=== PATIENT | female | born 1970 | race Caucasian/White ===

== ENCOUNTER → 2020-02-10 15:02 | Outpatient (BNVA) | payer OTHER, SELFPAY | PROVIDERS: Visit Provider Physician Assistant | DX: Z01.89 Encounter for other specified special examinations (principal) | CPT/HCPCS: 99211 ==

== ENCOUNTER → 2020-02-24 08:38 | Outpatient (BNVA) | payer OTHER, SELFPAY | PROVIDERS: Visit Provider Surgery | DX: Z76.89 Persons encountering health services in other specified circumstances (principal) ==

== ENCOUNTER → 2020-03-08 08:22 | Outpatient (BNVA) | payer OTHER, SELFPAY | PROVIDERS: Visit Provider Surgery | DX: Z76.89 Persons encountering health services in other specified circumstances (principal) ==

== ENCOUNTER → 2020-04-13 08:13 | Outpatient (BNVA) | payer OTHER, SELFPAY | PROVIDERS: Visit Provider Dietitian, Registered ==

== ENCOUNTER → 2020-04-15 08:06 | Outpatient (BNVA) | payer OTHER, SELFPAY | PROVIDERS: Visit Provider Surgery ==

== ENCOUNTER → 2020-06-03 08:01 | Outpatient (BNVA) | payer OTHER, SELFPAY | PROVIDERS: Visit Provider Surgery ==

== ENCOUNTER → 2020-06-22 08:07 | Outpatient (BNVA) | payer OTHER, SELFPAY | PROVIDERS: Visit Provider Dietitian, Registered ==

== ENCOUNTER → 2020-07-05 13:59 | Outpatient (BNVA) | payer OTHER, SELFPAY | PROVIDERS: Visit Provider Dietitian, Registered | DX: E66.01 Morbid (severe) obesity due to excess calories (principal); Z68.42 Body mass index [BMI] 45.0-49.9, adult | CPT/HCPCS: 97802 ==

== ENCOUNTER → 2020-07-28 08:10 | Outpatient (BNVA) | payer OTHER, SELFPAY | PROVIDERS: Visit Provider Dietitian, Registered | DX: E66.01 Morbid (severe) obesity due to excess calories (principal); Z68.42 Body mass index [BMI] 45.0-49.9, adult | CPT/HCPCS: 97803 ==

== ENCOUNTER → 2020-08-29 07:50 | Outpatient (BNVA) | payer OTHER, SELFPAY | PROVIDERS: Visit Provider Surgery ==

== ENCOUNTER → 2020-08-30 08:14 | Outpatient (BNVA) | payer OTHER, SELFPAY | PROVIDERS: Visit Provider Dietitian, Registered ==

== ENCOUNTER 2020-09-06 08:32 | Outpatient (REF) | payer OTHER, SELFPAY ==
--- NOTE | ~2020-09-06 | US_ITS ---
EXAMINATION: US COMPLETE ABDOMEN WITH LIVER ELASTOGRAPHY CLINICAL INFORMATION: Obesity. Gastroesophageal reflux COMPARISON: None. TECHNIQUE: Real-time imaging of the abdominal viscera. Noninvasive ultrasound liver fibrosis assessment is performed using Jose Armando ElastPQ point quantification shear wave elastography (pSWE) with a C5-2 MHz transducer. Multiple elastography samples are obtained. FINDINGS: PANCREAS: Normal. ABDOMINAL AORTA: The proximal, middle, and distal aortic segments are normal in caliber. INFERIOR VENA CAVA: Visualized portions are normal. LIVER: Normal. The liver demonstrates normal size, contour and echogenicity. No focal lesion or intrahepatic biliary duct dilatation. The right lobe measures 16 cm in length. The left lobe measures 10 cm in length. Portal flow is normal/hepatopedal Shear wave liver elastography median stiffness is 1.4 m/s (reference: normal median stiffness is 1.3 m/s or less). IQR/median stiffness to assess sampling precision is 0.23 (reference: good quality data set is IQR/median stiffness of 0.15 or less). GALLBLADDER: There is a large 1.9 x 3.7 x 2.5 cm gallstone in the gallbladder. Gallbladder is normal in size. The gallbladder wall does not appear thickened. There is no pericholecystic fluid. COMMON BILE DUCT: Normal in caliber measuring 0.4 cm in diameter. RIGHT KIDNEY: There is a small 7 x 8 mm cyst exophytic to the lateral lower pole. No hydronephrosis. No renal calculi. The kidney measures 12.8 cm in maximum dimension. LEFT KIDNEY: Normal. No hydronephrosis. No renal calculi or focal parenchymal lesions. The kidney measures 11.7 cm in maximum dimension. SPLEEN: Normal. The spleen measures 10.8 cm in maximum dimension. FREE FLUID: None. US/US abdomen comp w elastography IMPRESSION: 1. Impression impression: Normal-appearing liver. Large gallstone in the gallbladder. Small right renal cyst. 2. Liver elastography: Slightly limited due to sampling error. In the absence of other known clinical signs, rules out compensated advanced chronic liver disease. REFERENCE: Society of Radiologists in Ultrasound Liver Stiffness Thresholds (2020): LIVER STIFFNESS THRESHOLDS: *Liver Stiffness equal or less than 1.3 m/s: High probability of being normal. *Liver Stiffness less than 1.7 m/s: In the absence of other known clinical signs, rules out compensated advanced chronic liver disease. *Liver Stiffness 1.7-2.1 m/s: Suggestive of compensated advanced chronic liver disease but need further test for confirmation. *Liver Stiffness over 2.1 m/s: Rules in compensated advanced chronic liver disease. *Liver Stiffness over 2.4 m/s: Suggestive of clinically significant portal hypertension. QUALITY OF DATA SET: *IQR/Median value equal or less than 0.15 implies a quality data set. *IQR/Median value over 0.15 implies a poor quality data set. SIGNIFICANT CHANGE FROM PRIOR EXAM: Significant change if liver stiffness measurement is 10% or greater from prior exam. OTHER CONSIDERATIONS: The stage of liver fibrosis may be overestimated in the setting of acute hepatitis, liver inflammation, elevated liver function tests, hepatic vascular congestion, obstructive cholestasis, non-fasting state, and infiltrative diseases such as amyloidosis and lymphoma. In some patients with NAFLD, the liver stiffness thresholds for compensated advanced chronic liver disease may be lower. In causes other than viral hepatitis and NAFLD, liver stiffness thresholds are not well established.
--- NOTE | ~2020-09-06 | FL_ITS ---
EXAMINATION: XR GI SERIES CLINICAL INFORMATION: Obesity. Gastroesophageal reflux disease. COMPARISON: None TECHNIQUE: Upper GI was performed using thin and thick barium and effervescent granules. FINDINGS: Esophageal motility is normal. No significant esophageal hernia is seen. There is mild gastroesophageal reflux. There is fold thickening of the stomach questionable for gastritis. No ulcer, mass or stricture is seen. The duodenum is normal appearing. FLUOROSCOPY TIME: 1.1 minutes DOSE AREA PRODUCT: 17 dumont per centimeter squared. Total dose 63 mgy. 25 saved fluoroscopic images. FL/FL upper GI series IMPRESSION: Mild gastroesophageal reflux. Prominent folds in the stomach questionable for gastritis.
--- NOTE | ~2020-09-06 | XR_ITS ---
EXAMINATION: XR CHEST CLINICAL INFORMATION: Obesity. Gastroesophageal reflux disease. COMPARISON: None TECHNIQUE: 2 views of the chest were obtained. FINDINGS: The cardiac and mediastinal contours are normal. The lungs are clear. There is no pleural effusion or pneumothorax. There are mild degenerative changes of the spine. XR/XR chest 2V IMPRESSION: No evidence for acute disease in the chest.
== END 2020-09-06 08:33 | disposition home or self-care (01) ==
LOC: HO.US 08:32
PROVIDERS: Visit Provider Surgery
DX: Z01.818 Encounter for other preprocedural examination (principal); E66.01 Morbid (severe) obesity due to excess calories; K21.9 Gastro-esophageal reflux disease without esophagitis; F32.9 Major depressive disorder, single episode, unspecified; F90.9 Attention-deficit hyperactivity disorder, unspecified type
CPT/HCPCS: 71046; 74240; 76705; 76981

== ENCOUNTER → 2020-10-03 07:11 | Outpatient (BNVA) | payer OTHER, SELFPAY | PROVIDERS: Visit Provider Surgery ==

== ENCOUNTER 2020-10-05 09:28 | Outpatient (REF) | payer OTHER, SELFPAY ==
--- NOTE | 2020-10-05 09:44 | ECG_ITS ---
Test Reason : E66.01 Blood Pressure : / mmHG Vent. Rate : 077 BPM Atrial Rate : 077 BPM P-R Int : 140 ms QRS Dur : 076 ms QT Int : 388 ms P-R-T Axes : 052 029 030 degrees QTc Int : 439 ms Normal sinus rhythm Normal ECG No previous ECGs available Referred By: Lionel Campa Electronically Signed By:Jose Polk
[2020-10-05 10:20] LABS: MANUAL DIFF FLAG NO
[2020-10-05 10:23] LABS: Basophils Absolute Auto 0.1 X10*3/uL (0.0-0.2); Basophils Percent Auto 0.8 % (0-2); Eosinophils Absolute Auto 0.2 X10*3/uL (0.0-0.4); Hemoglobin 12.8 g/dl (12.0-16.0); Imm Gran Abs Auto 0.02 X10*3/uL (0.00-0.03); Imm Gran Pct Auto 0.3 % (0.0-0.4); Lymphocytes Absolute Auto 2.1 X10*3/uL (1.2-4.9); Mean Corpuscular HGB Conc 31.2 g/dl (31.0-35.0); Mean Corpuscular Hemoglobin 26.3 pg (27.0-33.0); Mean Corpuscular Volume 84.2 fL (80-98); Mean Platelet Volume 11.2 fL (9.4-12.3); Monocytes Absolute Auto 0.4 X10*3/uL (0.1-1.2); Neutrophils Absolute Auto 4.6 X10*3/uL (2.0-8.3); Neutrophils Percent Auto 61.9 % (45-73); Platelet Count 346 X10*3/uL (160-400); Red Blood Count 4.87 X10*6/uL (4.20-5.50); Red Cell Distribution Width 15.2 % (11.0-16.0); White Blood Count 7.4 X10*3/uL (4.8-10.8)
[2020-10-05 10:31] LABS: Estimated Average Glucose 114 mg/dL; Hemoglobin A1c % 5.6 %
[2020-10-05 11:40] LABS: Alanine Aminotransferase 72 U/L (0-31); Albumin Level 4.1 g/dL (3.5-5.0); Alkaline Phosphatase 123 U/L (39-117); Anion Gap 13 (12-20); Aspartate Amino Transferase 27 U/L (5-31); Bilirubin Total 0.3 mg/dL (0.0-1.0); Blood Urea Nitrogen 22 mg/dL (9-16); C Reactive Protein 1.95 mg/dL (< or = 0.50); Calcium 9.4 mg/dL (8.4-10.2); Carbon Dioxide 29 mmol/L (22-29); Chloride 103 mmol/L (96-108); Cholesterol 162 mg/dL; Estimated Glomerular Filt Rate > 60; Glucose Random 106 mg/dL (60-115); HDL Cholesterol 43 mg/dL; LDL Cholesterol Calculated 84 mg/dl; Potassium 4.1 mmol/L (3.3-5.1); Sodium 141 mmol/L (135-145); Total Protein 7.3 g/dL (6.5-8.0); Triglycerides 176 mg/dL
[2020-10-05 11:46] LABS: Ferritin 26 ng/mL (10-250); TSH reflex Free T4 0.91 uIU/mL (0.32-4.0); Vitamin D 25-OH Total 43.4 ng/mL (>30)
[2020-10-05 12:44] LABS: Folate 16.5 ng/mL (> or = 4.0); Vitamin B12 1120 pg/mL (200-900)
[2020-10-06 14:31] LABS: H Pylori Breath Test NOT DETECTED (NOT DETECTED)
[2020-10-06 14:56] LABS: Calcium (PTHI) 9.4 mg/dL (8.6-10.4); PTHI 25 pg/mL (14-64)
[2020-10-06 23:26] LABS: Insulin Level Total 12.4 uIU/mL
[2020-10-08 00:46] LABS: Zinc 70 mcg/dL (60-130)
[2020-10-10 03:31] LABS: Vitamin A 72 mcg/dL (38-98)
[2020-10-10 11:42] LABS: Vitamin B1 13 nmol/L (8-30)
== END 2020-10-05 09:29 | disposition home or self-care (01) ==
LOC: HO.LAB 09:28
PROVIDERS: Visit Provider Surgery
DX: F32.9 Major depressive disorder, single episode, unspecified (principal); F90.9 Attention-deficit hyperactivity disorder, unspecified type; K21.9 Gastro-esophageal reflux disease without esophagitis; E66.01 Morbid (severe) obesity due to excess calories
CPT/HCPCS: 36415; 80053; 80061; 82306; 82607; 82728; 82746; 83013; 83036; 83525; 83970; 84425; 84443; 84590; 84630; 85025; 86140; 93005

== ENCOUNTER 2020-10-05 10:18 | Emergency (ER) | payer OTHER, SELFPAY ==
[2020-10-05 10:20] VITALS: BP 128/82; PULSE 83; RESP 12; TEMP 36.6; O2SAT 97; BMI 45.1
--- NOTE | 2020-10-05 10:31 | ED.GENADULT ---
HPI - General Adult General Chief complaint: General Medical Stated complaint: ?infected finger Time Seen by Provider: 10/05/20 10:31 Source: patient Mode of arrival: ambulatory Limitations: no limitations History of Present Illness HPI narrative: 50 y/o female presenting with a painful and red index finger on her left hand. She is concerned there is an infection. She thinks her fingernail got infected after giving herself a manicure. She tried using different ointments and cleansers. She developed a blister to the area that popped and then redness started to spread slightly. She reports ongoing discomfort and pressure feeling in her fingertip. She is not diabetic. No redness down her finger or arm. No fevers. complaint: finger pain & swelling Onset (ago): day(s) (4) Location: left and upper extremity Radiation: non-radiation Severity: moderate Quality: aching Pain Consistency: constant Relieving factors: none Exacerbating factors: other (palpation) Associated symptoms: denies other symptoms Treatments prior to arrival: none Related Data Home Medications Medication Instructions Recorded Confirmed omeprazole magnesium 20 mg 20 mg PO DAILY 03/08/20 03/08/20 tablet,delayed release Previous Rx's Medication Instructions Recorded bupropion HCl 150 mg tablet,12 hr 150 mg PO DAILY #1 tab 03/08/20 sustained-release fluoxetine 40 mg capsule 40 mg PO DAILY #1 cap 03/08/20 lisdexamfetamine 20 mg capsule 20 mg PO DAILY #1 cap 03/08/20 Allergies Allergy/AdvReac Type Severity Reaction Status Date / Time No Known Allergies Allergy Verified 03/08/20 14:03 Review of Systems Review of Systems: Constitutional: No Fever, No Chills Gastrointestinal: No Nausea, No Vomiting Musculoskeletal: + joint pain, No Myalgias Skin: + Skin Lesions, No rash Neuro: No Weakness, No Numbness Heme/Lymph: No Bruising, No Lymphadenopathy PMFSH Past Medical History Attestation statement: The following information was validated with the patient. Medical History ADHD Depression DJD (degenerative joint disease) GERD (gastroesophageal reflux disease) Surgical History (Updated 03/08/20 @ 14:07 by Lionel Campa MD) History of hip replacement Morbid obesity Family History Family History Mother No problems noted. Father Congestive heart failure Son Autism Social History Social History Alcohol intake: current Alcohol intake frequency: holidays/special occasions only Advance Directives: Yes Advance Directives Information Provided: No Advance Directives on File: No Patient : No Physical Exam Vital Signs: Vital Signs: Last Vital Signs Temp 97.9 F 10/05/20 10:20 Pulse 83 10/05/20 10:20 Resp 12 10/05/20 10:20 BP 128/82 10/05/20 10:20 Pulse Ox 97 10/05/20 10:20 Body Mass Index 45.1 Appearance: Alert. Oriented X3. No acute distress. HEENT: normal inspection CVS: Normal heart rate and rhythm. Pulses normal. Respiratory: No respiratory distress. Skin: Skin warm and dry. Normal skin color. Normal skin turgor. No rashes. Extremities: left index finger with erythema, warmth and tenderness to the distal tip lateral to to the fingernail. cap refill <3 sec. able to bend at DIP and PIP joints. Neuro: Oriented X 3. No motor deficit. No sensory deficit. Course Course Course Narrative: 50 y/o female presenting with left index fingertip pain and redness x4 days. Exam is consistent with a paronychia. Will treat with PO abx. Tolerated I&D well w/ small amount of pus and blood expressed. Stable for d/c. Procedures Abscess I/D Site: hand Side (if applicable): left Technique: incised with blade Sent for culture/gram staining?: No Irrigation: Yes Packing used?: none Complications: pain Critical Care Time Critical Care Time Critical Care Time: No Discharge Plan Discharge Clinical Impression: Paronychia Patient Disposition: Home, Self-Care Instructions: Paronychia (ED) Additional Instructions: Take the prescribed antibiotics as directed. Recommend warm soaks in warm soapy water 2-3 times per day. Use topical bacitracin 2 times per day. Keep clean and covered. If you have worsening signs of infection such as worsening pain, swelling, redness or drainage of pus come back to the ER for further evaluation. Prescriptions: No Action fluoxetine [Prozac] 40 mg capsule 40 mg PO DAILY Qty: 1 RF: 0 bupropion HCl [Wellbutrin SR] 150 mg tablet sustained-release 12 hr 150 mg PO DAILY Qty: 1 RF: 0 Vyvanse 20 mg capsule 20 mg PO DAILY Qty: 1 RF: 0 omeprazole magnesium [Prilosec OTC] 20 mg tablet,delayed release (DR/EC) 20 mg PO DAILY RF: 0
== END 2020-10-05 11:14 | disposition home or self-care (01) ==
PROVIDERS: Emergency Provider Emergency Medicine
DX: L02.512 Cutaneous abscess of left hand (principal); L03.012 Cellulitis of left finger; M79.642 Pain in left hand; Z79.899 Other long term (current) drug therapy
CPT/HCPCS: 26010; 99211; 99283; 99284

== ENCOUNTER → 2020-10-26 08:15 | Outpatient (BNVA) | payer OTHER, SELFPAY | PROVIDERS: Visit Provider Dietitian, Registered ==

== ENCOUNTER → 2020-11-17 10:36 | Outpatient (BNVA) | payer OTHER, SELFPAY | PROVIDERS: Visit Provider Dietitian, Registered ==

== ENCOUNTER → 2020-11-21 07:10 | Outpatient (BNVA) | payer OTHER, SELFPAY | PROVIDERS: Visit Provider Surgery ==

== ENCOUNTER → 2020-11-30 08:11 | Outpatient (BNVA) | payer OTHER, SELFPAY | PROVIDERS: Visit Provider Dietitian, Registered | DX: E66.01 Morbid (severe) obesity due to excess calories (principal) | CPT/HCPCS: 97803 ==

== ENCOUNTER → 2020-12-01 11:58 | Outpatient (BNVA) | payer OTHER, SELFPAY | PROVIDERS: Visit Provider Physician Assistant ==

== ENCOUNTER → 2020-12-12 08:31 | Outpatient (BNVA) | payer OTHER, SELFPAY | PROVIDERS: Visit Provider Surgery ==

== ENCOUNTER → 2020-12-16 13:17 | Outpatient (BNVA) | payer OTHER, SELFPAY | PROVIDERS: Visit Provider Dietitian, Registered ==

== ENCOUNTER 2020-12-27 11:10 | Inpatient (IN) | payer OTHER, SELFPAY ==
[2020-12-19 08:49] VITALS: BMI 46.1
[2020-12-20 10:00] LABS: MANUAL DIFF FLAG NO
[2020-12-20 10:12] LABS: Basophils Absolute Auto 0.1 X10*3/uL (0.0-0.2); Basophils Percent Auto 0.7 % (0-2); Eosinophils Absolute Auto 0.2 X10*3/uL (0.0-0.4); Eosinophils Percent Auto 1.8 % (0-4); Hematocrit 42.1 % (37-47); Hemoglobin 13.2 g/dl (12.0-16.0); Imm Gran Abs Auto 0.05 X10*3/uL (0.00-0.03); Imm Gran Pct Auto 0.6 % (0.0-0.4); Lymphocytes Absolute Auto 2.4 X10*3/uL (1.2-4.9); Lymphocytes Percent Auto 28.7 % (20-40); Mean Corpuscular HGB Conc 31.4 g/dl (31.0-35.0); Mean Corpuscular Hemoglobin 26.7 pg (27.0-33.0); Mean Corpuscular Volume 85.2 fL (80-98); Mean Platelet Volume 11.6 fL (9.4-12.3); Monocytes Absolute Auto 0.5 X10*3/uL (0.1-1.2); Monocytes Percent Auto 6.4 % (2-11); Neutrophils Absolute Auto 5.2 X10*3/uL (2.0-8.3); Neutrophils Percent Auto 61.8 % (45-73); Platelet Count 382 X10*3/uL (160-400); Red Blood Count 4.94 X10*6/uL (4.20-5.50); Red Cell Distribution Width 15.1 % (11.0-16.0); White Blood Count 8.4 X10*3/uL (4.8-10.8)
[2020-12-20 10:16] LABS: INTERNATIONAL NORM RATIO 1.1 (0.9-1.1); Prothrombin Time 12.8 SEC (9.9-13.0)
[2020-12-20 10:19] LABS: Partial Thromboplastin Time 42.2 SEC (24.1-38.0)
[2020-12-20 10:36] LABS: Estimated Average Glucose 105 mg/dL; Hemoglobin A1c % 5.3 %
[2020-12-20 10:43] LABS: Alanine Aminotransferase 30 U/L (0-31); Albumin Level 4.1 g/dL (3.5-5.0); Alkaline Phosphatase 88 U/L (39-117); Anion Gap 15 (12-20); Aspartate Amino Transferase 22 U/L (5-31); Bilirubin Total 0.4 mg/dL (0.0-1.0); Blood Urea Nitrogen 20 mg/dL (9-16); C Reactive Protein 2.53 mg/dL (< or = 0.50); Carbon Dioxide 29 mmol/L (22-29); Chloride 101 mmol/L (96-108); Cholesterol 155 mg/dL; Creatinine Clr Calc Pharmacy 114.8; Estimated Glomerular Filt Rate > 60; Glucose Random 107 mg/dL (60-115); HDL Cholesterol 42 mg/dL; LDL Cholesterol Calculated 86 mg/dl; Sodium 140 mmol/L (135-145); Total Protein 7.3 g/dL (6.5-8.0); Triglycerides 139 mg/dL
[2020-12-20 11:06] LABS: TSH reflex Free T4 1.42 uIU/mL (0.32-4.0)
[2020-12-22 09:08] LABS: Insulin Level Total 6.5 uIU/mL
[2020-12-23 12:47] LABS: Zinc 71 mcg/dL (60-130)
--- NOTE | 2020-12-25 18:26 | MHC.SHP ---
Pre-Procedural Eval Section A Date of Service: 12/25/20 The patient is an INPATIENT: Yes The History & Physical has been completed within 30 days and I have reviewed it.: Yes Section B Chief Complaint: Morbid Severe Obesity Relevant Family History (Specify if Yes): No Relevant Social History: None Present Medications: None Medical History: No relevant PMH History of Previous Operations: No relevant previous surgery Allergies: Allergies Allergy/AdvReac Type Severity Reaction Status Date / Time No Known Allergies Allergy Verified 12/12/20 14:22 Review of Systems Sugical H&P ROS: Negative: Constitution, Cardiovascular, Respiratory, Neurological, Psychiatric, Hem-Onc, Allergic/Immunologic, Gastrointestinal, Genitourinary, Musculoskeletal, Integumentary, Endocrine and Eyes/Ears/Nose/Throat Exam Surgical H&P Exam: Normal: HEENT, Normal: Heart, Normal: Lungs, Normal: Extremities, Normal: Abdomen, Normal: Skin and Normal: Neurological Plan Diagnosis/Plan: Unchanged I have reviewed the history and physical and performed a pertinent physical examination on my patient. No changes have occurred unless specified.
--- NOTE | 2020-12-26 10:04 | HO.ANESPROP2 ---
Documented by User: Paradise Diez NP 12/26/20 10:04 HPI - Anesthesia Eval Consult details Narrative: 50yo F for Gastrectomy Sleeve, EGD, Poss Diaphragmatic Hernia, Poss Ventral Hernia, Poss open PMFSH Active Problems Active Problems: All Active Problems (Updated 12/19/20 @ 08:49 by Carrie Acuna RN) Morbid obesity (Acute) GERD (gastroesophageal reflux disease) (Acute) DJD (degenerative joint disease) (Acute) Depression (Acute) ADHD (Acute) Past Medical History Medical History ADHD COVID-19 vaccine series completed Depression DJD (degenerative joint disease) GERD (gastroesophageal reflux disease) Family History Family History Mother No problems noted. Father Congestive heart failure Son Autism Surgical History Surgical History History of hip replacement Social History Social History Household Members: Family Housing: House Are you a primary medicare interviewer to a significant other at home: No Do you presently have visiting nurse or other home services: No Patient Tobacco Use Status: Former Tobacco user Quit Date: age 30 Tobacco use type: Cigarette Use of substances other than those prescribed or required for medical reasons: Yes Substance Use Type: Marijuana Substance Use Type Other:: advised to hold pre-op Substance Use Frequency: Occasionally Have you been hit, kicked, punched, or otherwise hurt by someone within the past year? If so, by whom?: No Are you DNR?: No Advance Directives: No (states no official HCP-would be ) Advance Directives Information Provided: Yes (as above-HCP informational brochure mailed w/pre-op info) Advance Directives on File: No Recently lost weight without trying: No Eating poorly because of decreased appetite: No Nutrition Risks: No Nutritional Risk Patient : No (post menopausal) Poor oral hygiene: No Meds Allergies Allergy/AdvReac Type Severity Reaction Status Date / Time No Known Allergies Allergy Verified 12/27/20 11:13 Home Medications Medication Instructions Recorded Confirmed Last Taken Type dextroamphetamine-amphetamine 30 30 mg PO DAILY 0912/19/20 12/27/20 06:00 History mg tablet (Adderall) Exam Exam Date and Time: December 26, 2020 1004 Height,Weight and Vital Signs: Height 5 ft 6 in Weight 129.727 kg Pertinent Lab Results Pertinent Lab Results: Laboratory Tests 12/20/20 12/20/20 12/20/20 09:20 09:20 09:20 WBC 8.4 RBC 4.94 Hgb 13.2 Hct 42.1 MCV 85.2 MCH 26.7 L MCHC 31.4 RDW 15.1 Plt Count 382 MPV 11.6 Immature Gran % (Auto) 0.6 H Neut % (Auto) 61.8 Lymph % (Auto) 28.7 [place] % (Auto) 6.4 Eos % (Auto) 1.8 Baso % (Auto) 0.7 Lymph # (Auto) 2.4 [place] # (Auto) 0.5 Eos # (Auto) 0.2 Baso # (Auto) 0.1 Abs Immat Gran (auto) 0.05 H Absolute Neuts (auto) 5.2 Absolute Nucleated RBC 0.000 Nucleated RBC % (auto) 0.0 PT 12.8 INR 1.1 APTT 42.2 H Sodium 140 Potassium 5.0 D Chloride 101 Carbon Dioxide 29 Anion Gap 15 BUN 20 H Creatinine 0.80 Estim Creat Clear Calc 114.8 Estimated GFR > 60 Random Glucose 107 Estimat Average Glucose Hemoglobin A1c % Total Insulin Calcium 10.0 D Total Bilirubin 0.4 AST 22 ALT 30 Alkaline Phosphatase 88 D C-Reactive Protein 2.53 H Total Protein 7.3 Albumin 4.1 Triglycerides 139 Cholesterol 155 LDL Cholesterol, Calc 86 HDL Cholesterol 42 TSH 1.42 Zinc Blood Type Antibody Screen 12/20/20 12/20/20 12/20/20 09:20 09:20 09:20 WBC RBC Hgb Hct MCV MCH MCHC RDW Plt Count MPV Immature Gran % (Auto) Neut % (Auto) Lymph % (Auto) [place] % (Auto) Eos % (Auto) Baso % (Auto) Lymph # (Auto) [place] # (Auto) Eos # (Auto) Baso # (Auto) Abs Immat Gran (auto) Absolute Neuts (auto) Absolute Nucleated RBC Nucleated RBC % (auto) PT INR APTT Sodium Potassium Chloride Carbon Dioxide Anion Gap BUN Creatinine Estim Creat Clear Calc Estimated GFR Random Glucose Estimat Average Glucose 105 Hemoglobin A1c % 5.3 Total Insulin 6.5 Calcium Total Bilirubin AST ALT Alkaline Phosphatase C-Reactive Protein Total Protein Albumin Triglycerides Cholesterol LDL Cholesterol, Calc HDL Cholesterol TSH Zinc 71 Blood Type Antibody Screen 12/20/20 09:20 WBC RBC Hgb Hct MCV MCH MCHC RDW Plt Count MPV Immature Gran % (Auto) Neut % (Auto) Lymph % (Auto) [place] % (Auto) Eos % (Auto) Baso % (Auto) Lymph # (Auto) [place] # (Auto) Eos # (Auto) Baso # (Auto) Abs Immat Gran (auto) Absolute Neuts (auto) Absolute Nucleated RBC Nucleated RBC % (auto) PT INR APTT Sodium Potassium Chloride Carbon Dioxide Anion Gap BUN Creatinine Estim Creat Clear Calc Estimated GFR Random Glucose Estimat Average Glucose Hemoglobin A1c % Total Insulin Calcium Total Bilirubin AST ALT Alkaline Phosphatase C-Reactive Protein Total Protein Albumin Triglycerides Cholesterol LDL Cholesterol, Calc HDL Cholesterol TSH Zinc Blood Type A Positive Antibody Screen NEGATIVE Narrative Narrative: EKG 09/2020 Vent. Rate : 077 BPM ? ? Atrial Rate : 077 BPM ?? P-R Int : 140 ms? QRS Dur : 076 ms ? ? QT Int : 388 ms ? ? ? P-R-T Axes : 052 029 030 degrees ?? QTc Int : 439 ms ? Normal sinus rhythm Normal ECG No previous ECGs available Assessment and Plan Assessment Anesthesia Assessment: Chart Reviewed Documented by User: Verona Pretty MD 12/27/20 12:03 [facility] Past Medical History Medical History ADHD COVID-19 vaccine series completed Depression DJD (degenerative joint disease) GERD (gastroesophageal reflux disease) Family History Family History Mother No problems noted. Father Congestive heart failure Son Autism Family history of problems with anesthesia: No Surgical History Surgical History History of hip replacement History of Problems with Anesthesia: No Social History Social History Household Members: Family Housing: House Are you a primary medicare interviewer to a significant other at home: No Do you presently have visiting nurse or other home services: No Patient Tobacco Use Status: Former Tobacco user Quit Date: age 30 Tobacco use type: Cigarette Use of substances other than those prescribed or required for medical reasons: Yes Substance Use Type: Marijuana Substance Use Type Other:: advised to hold pre-op Substance Use Frequency: Occasionally Have you been hit, kicked, punched, or otherwise hurt by someone within the past year? If so, by whom?: No Are you DNR?: No Advance Directives: No (states no official HCP-would be ) Advance Directives Information Provided: Yes (as above-HCP informational brochure mailed w/pre-op info) Advance Directives on File: No Recently lost weight without trying: No Eating poorly because of decreased appetite: No Nutrition Risks: No Nutritional Risk Patient : No (post menopausal) Poor oral hygiene: No Meds Allergies Allergy/AdvReac Type Severity Reaction Status Date / Time No Known Allergies Allergy Verified 12/27/20 11:13 Home Medications Medication Instructions Recorded Confirmed Last Taken Type dextroamphetamine-amphetamine 30 30 mg PO DAILY 12/12/20 12/19/20 12/27/20 06:00 History mg tablet (Adderall) Exam Airway Mallampati Class: II TM Dist: >3cm Neck ROM: Full Assessment and Plan Assessment Anesthesia Assessment: Anesthesia Plan Discussed Final Anesthetic Review Family History of Problems with Anesthesia: No History of Problems with Anesthesia: No NPO: Yes ASA Class: III Final Preanesthetic Review: No Changes in Pt Med Stat, Meds/Allgs Chart Reviewed, Consent Obtained/Reviewed and Anes Risks/Benef Reviewed Patient Risk: Intermediate Procedure Risk: Intermediate Assessment/Block/Sedation in SS: Assess/Block/Sedation-SS Anesthetic Plan Anesthetic Plan: GA Disposition: Standard PACU
[2020-12-27] VITALS (13 sets, daily range): BP systolic 146–185; BP diastolic 85–107; PULSE 83–110; RESP 16–22; TEMP 36–36.7; O2SAT 93–100
--- NOTE | 2020-12-27 11:44 | PC.NURSE ---
In preop, patient stated that she drank small sips of water between 5am-10am, totaling about 8oz worth. Anesthesia Dr. Pretty and Dr. Espinal aware. Okay to proceed per both doctors. No new orders at this time.
[2020-12-27] MEDS: Lactated Ringers 1,000 ML 100 ML IVCONT (12:07)
[2020-12-27] MEDS: Lactated Ringers 1,000 ML 999 ML IV (12:07)
[2020-12-27 12:15] LABS: COVID-19 Test Negative (Negative); IDNOW Serial# 9DD0AD1C
--- NOTE | 2020-12-27 13:00 | PM.PNGS ---
Subjective Subjective Date of Service: 12/28/20 Interval history: Patient has mild incisional pain, but was able to ambulate and use the incentive spirometer. She is tolerating phase 1 bariatric diet Physical Exam Vital Signs: Vital Signs: Last Vital Signs Temp 97.9 F 12/27/20 11:38 Pulse 110 H 12/27/20 11:38 Resp 16 12/27/20 11:38 BP 146/87 H 12/27/20 11:38 Pulse Ox 97 12/27/20 11:38 Body Mass Index 46.1 GI: Inspection: Yes normal to inspection and Yes incision (dry, clean and intact) Extrem: Right lower extremity: normal to inspection (no calf tenderness) Left lower extremity: normal to inspection (no calf tenderness) Procedures Date of Service Date of Service: 12/28/20 Progress Note: A&P Assessment and plan (1) Morbid obesity: Status: Acute Assessment and Plan: s/p laparoscopic sleeve gastrectomy, lysis of adhesions repair of diaphragmatic hernia, and gastropexy Doing well Check am labs. If OK, will discharge home? (2) GERD (gastroesophageal reflux disease): Status: Acute (3) DJD (degenerative joint disease): Status: Acute (4) Depression: Status: Acute (5) ADHD: Status: Acute (6) Cholelithiasis: Status: Acute (7) S/P laparoscopic sleeve gastrectomy: Status: Acute (8) Status post repair of paraesophageal diaphragmatic hernia: Status: Acute Fall Risk Details Current Medications: Current Medications Hydromorphone HCl (Hydromorphone Hcl 0.5 Mg/0.5 Ml Syringe) 0.5 mg IVPUSH Q5M PRN; Protocol PRN Reason: Pain, Severe (Pain Scale 7-10) Lactated Ringer's (Lr) 1,000 mls @ 100 mls/hr IVCONT .Q10H DELMAR Last Admin: 12/27/20 12:07 Dose: 100 mls/hr Documented by: Promethazine HCl 12.5 mg/ (Sodium Chloride) 50.5 mls @ 202 mls/hr IV ONCE PRN PRN Reason: Nausea and Vomiting Ondansetron HCl (Ondansetron Hcl 4 Mg/2 Ml Vial) 4 mg IVPUSH ONCE PRN PRN Reason: Nausea and Vomiting Time Spent With Patient Time: Total time spent is greater than 50% in coordination of care (as documented) at patient's floor/unit and/or counseling patient: Time with patient: less than 15 minutes Quality Stroke Does the patient have a stroke diagnosis?: No VTE Prior VTE?: No VTE Risk Level:: Surgical - moderate VTE Device Contraindication: N/A - Device Ordered VTE Drug Contraindication: Treatment Not Indicated
--- NOTE | 2020-12-27 13:02 | P.BOP_ITS ---
Brief Operative Note Date of Service: 12/27/20 Pre-op diagnosis: Morbid obesity and comorbidities (see below) Post-op diagnosis: same Procedure: INITIAL PATIENT BMI ON PRESENTATION AT OUR OFFICE: 49.2 kg/m2 LAST BMI BEFORE SURGERY: 44.5 kg/m2 COMORBIDITIES: Depression, ADHD, GERD, Cholelithiasis The patient participated in an intensive weekly lifestyle ?intervention and exercise program during which the patient ?has lost between the initial office visit and the last preoperative visit 41.4lbs, or 12.73% of initial actual body weight. The patient met the BMI-criteria for bariatric surgery based on the BMI on initial presentation. The patient should not be penalized for achieving such weight loss because ?it is not sustainable long-term without surgical intervention and it was achieved in preparation for bariatric surgery ?under my direction and based on my published research ([email or web address] and? [email or web address]/[email or web address])22930-[email or web address]/pdf ) ?that a 10% preoperative weight loss improves long-term weight loss after surgery and reduces perioperative complications.? Insurance carriers such as [facility] have endorsed my recommendations ?and have included in their policies criteria to include a 10% preoperative weight loss requirement. PROCEDURE: Esophago-gastroscopy, laparoscopic repair of incarcerated diaphragmatic hernia, laparoscopic lysis of adhesions, laparoscopic sleeve gastrectomy and laparoscopic gastropexy INDICATIONS: This is a 50 year-old female who was electively scheduled for laparoscopic, possibly open sleeve gastrectomy. The risks and complications of the procedure were discussed with the patient in advance, particularly the possibility of ; pulmonary embolism; staple line leak; bleeding; GERD; cardiac, pulmonary, or renal complications; as well as long-term problems such as insufficient weight loss, vitamin deficiency, strictures, or ulcers. The patient understood all the risks, and was in agreement to proceed with surgery. DESCRIPTION OF PROCEDURE: After informed consent was obtained from the patient, the patient was given preoperative antibiotics, and was transferred to the operating room. After successful induction of general anesthesia, pneumatic compressive devices were placed on both lower extremities. An upper endoscopy was performed next. The oropharynx and esophagus appeared to be within normal limits. There was a diaphragmatic hernia present of moderate size that was noit reported at the preoperative upper GI. The stomach was entered. Then after all fluid and air were suctioned and the stomach was fully decompressed, the scope was withdrawn and secured in the mid esophagus. The patient was then prepped and draped in the usual sterile manner, and abdominal access was established at the right upper quadrant with the Martinez technique. A 12 mm blunt port was inserted, and the abdomen was insufflated with CO2 to a pressure of 15 mmHg. Under direct visualization, additional ports were placed, specifically two 5 mm Versi-step ports to the left upper quadrant, and a 5 mm Versi-Step port to the right upper quadrant. 1% lidocaine plain was used to infiltrate all port sites as well as all fascia defects. Following that, the patient was placed in a steep reverse Trendelenburg position. An additional 5 mm port was placed to the right flank for the Mediflex retractor that was used to retract the left lobe of the liver. The gastro-esophageal fat pad was opened with the ultrasonic device (Thunderbeat, Olympus) and the anterior esophagus and hiatus were exposed. The angle of His was opened with the ultrasonic device the fundus of the stomach from any diaphragmatic and splenic attachments. I then opened the gastrocolic ligament between the transverse colon and the grea ter curvature of the stomach with the ultrasonic device to enter the lesser sac and facilitate the ligation of the short gastric vessels. I started at a mid- point along the greater curvature and using the Thunderbeat, all short gastric vessels were divided all the way to the angle of His until the left jey was completely dissected at its entirety. I then divided the gastro-colic ligament distally to a distance of about 3-4 cm proximal to the esophagus. There was an obvious significant-sized hiatal hernia. I continued dissecting along the hiatus toward the left jey and the angle of His. I fully mobilized the fat pad that was incarcerated in the hernia. I then continued by dissecting even further into the posterior retro-esophageal space all the way to the angle of His. I continued to mobilize the esophagus into the mediastinum circumferentially. Both vagal nerves were seen and preserved. At that point, I was able to have at least 3 to 5 cm of esophagus into the abdomen.? After I comp letely mobilized the esophagus from both the left and right jey and I had a good mobilization of the esophagus circumferentially, I closed the hernia defect with three interrupted #0 Surgidac sutures using the Endo Stitch device, two of which were placed posterior and one anterior to the esophagus. ? The stomach was then divided transversely with one Endo AMAYA-45 purple, one AMAYA- 45 orange and four AMAYA-60 articulating orange loads using the AEON stapler and loads. Every effort was made that the gastric sleeve had a tubular shape and an even caliber throughout. Once the sleeve resection was completed, the staple line of the gastric sleeve was reinforced with Hemoclips. The resected stomach was retrieved without difficulty from the Martinez port. A gastropexy was then performed in order to prevent postoperative GERD and partial gastric volvulus. Several interrupted 2.0 Surgidac sutures were placed between the sleeve's staple line and the previously divided greater omentum and gastro-colic ligament using the Endo-Stitch device. ?An upper endoscopy was performed. There was no narrowing at the GE junction. The scope was easily advanced all the way to the pylorus which was clearly visua lized. There was no narrowing anywhere and the sleeve's caliber was even throughout. The sleeve's staple line was inspected and there was no evidence of ischemia, bleeding or dehiscence. At that point the gastroscope was withdrawn from the patient?s mouth while we were decompressing the bowel and the stomach from any remaining air. I looked into the lesser sac to see how the sleeve was situating and it was situating well. There was no bleeding from the staple line, spleen, or short gastric vessels. The Mediflex retractor was removed, and the undersurface of the liver was inspected and there was no bleeding. The patient was placed in supine position. I closed the fascial defect of the 12 mm port site with a figure of eight #1 Polysorb suture. Then 100 cc 0.25 % Marcaine plain with 10 mg of Dexamethasone were used to infiltrate the fascial closure as well as all skin incisions. At this point, the abdomen was deflated, all ports were removed under direct vision, and no bleeding was noted from any of the port sites. The skin incisions were irrigated with saline and were closed with 4-0 absorbable monofilament sutures. Steri-Strips and OpSites were used to cover all incisions. The patient was extubated and was transferred in stable condition to the recovery room for further care. I was present and performed all bearden parts of the procedure. Ms. Mccullough was the assistant designer and Mr. Zuniga the second physician assistant psychiatry. There were no residents to assist with this case. Cory Campa MD, PhD, FACS Surgeon: Lionel Campa MD Anesthesia: GETA, local and other (TAP block) Was an Automotive Refinisher used for this Procedure?: No Automotive Refinisher: Libia Mccullough Estimated blood loss (mL): 10 IV fluids (mL): 3,000 Urine output (mL): 0 (No [facility] to record) Pathology: other (Stomach) Condition: stable Disposition: PACU
--- NOTE | 2020-12-27 16:59 | P.DS_ITS ---
DS: Providers Provider Date of Service: 12/28/20 Date of admission: 12/27/20 11:10 Primary care physician: Unknown Physician DS: Diagnosis Discharge Diagnosis (1) Morbid obesity: Status: Acute (2) GERD (gastroesophageal reflux disease): Status: Acute (3) DJD (degenerative joint disease): Status: Acute (4) Depression: Status: Acute (5) ADHD: Status: Acute (6) Cholelithiasis: Status: Acute DS: Summary Hospital Course Hospital Course: ADMITTING DIAGNOSIS: morbid obesity, ADHD, depression <GERD, diaphragmatic hiatal hernia DISCHARGE DIAGNOSIS: same, s/p laparoscopic sleeve gastrectomy and repair diaphragmatic hernia PAST SURGICAL HISTORY: bilateral hip replacements PROCEDURE: upper endoscopy, laparoscopic sleeve gastrectomy and repair of diaphragmatic hernia hernia DISCHARGE SUMMARY: History of Present Illness: The patient is a 50 year-old woman with a BMI of 49.1 kg/m2 and associated co- morbidities as described above. The patient had extensive work-up,lost 36.4 lbs preoperatively and was electively scheduled for laparoscopic, possible open sleeve gastrectomy and gastropexy. Risks and complications of the surgery were discussed with the patient in advance, particularly the possibility of , pulmonary embolism, anastomotic leak, bleeding, bowel injury, GERD, cardiac, renal or pulmonary complications. The patient understood all the risks and was in agreement with the surgical plan. Hospital Course: The patient underwent an uneventful laparoscopic sleeve gastrectomy with gastropexy and repair of diaphragmatic hernia on the day of admission. Postoperatively, the patient was transferred to the surgical floor. The patient received IV Acetaminophen and IV dilaudid for pain control. Patient was started on bariatric phase 1 diet POD #0. On postoperative day one, the patient was feeling well without nausea, vomiting, fevers, or tachycardia. The patient had some mild incisional pain and the abdomen was soft. On the morning of postoperative day one, the patient was continued on 1 ounce of water or ice every half hour. During the day, the patient did fairly well, having some incisional pain, but able to ambulate adequately and to tolerate liquids well. Since the patient is doing well, we decided that the patient was ready to be discharged. The patient was given instructions to follow-up with me next week and to call my office for any fever over 101, persistent abdominal pain, nausea, vomiting, GERD, symptoms of DVT such as calf tenderness, or leg swelling, or pulmonary embolism such as chest pain or shortness of breath. The patient was also instructed to drink 40-60 ounces of liquids per day using the 1-ounce cups. The patient had been given prescriptions for Tylenol for pain, Zofran prn for nausea, and pantoprazole and carafate previously. The patient was encouraged to ambulate and use the incentive spirometer. The patient was allowed to shower, but no baths, and encouraged to stay active at home. All of these instructions were given to the patient personally. All questions were answered and the patient understood all instructions, the instructions were also given to the patient in print. Time Spent with Patient Time attestation: Total time spent providing and/or coordinating discharge services: Discharge coordination time: Less than 30 minutes Quality: Stroke Does the patient have a stroke diagnosis?: No Physical Exam Vital Signs: Vital Signs: Last Vital Signs Temp 97.9 F 12/27/20 11:38 Pulse 110 H 12/27/20 11:38 Resp 16 12/27/20 11:38 BP 146/87 H 12/27/20 11:38 Pulse Ox 97 12/27/20 11:38 Body Mass Index 46.1 DS: Data Data Completed and Pending Pending studies at discharge: Pending at discharge 12/27/20 16:33 Surgical [PTH] Routine Labs on day of discharge: Laboratory Results - last 24 hr 12/27/20 11:25 COVID-19 (JAM[facility]) Negative COVID-19 Clin Com See Note Discharge Plan Discharge Anticipated Discharge Date/Time: 12/28/20 12:56 Patient Disposition: Home, Self-Care Discharge Diagnosis: s/p sleeve gastrectomy Referrals: Physician,Unknown J [Primary Care Provider] - 1 Week Discharge Medications: Continued ondansetron HCl 4 mg Tablet 4 mg PO Q12H PRN (Reason: Nausea And Vomiting) RF: 0 pantoprazole 40 mg Tablet,Delayed Release (Dr/Ec) 40 mg PO DAILY@0630 RF: 0 dextroamphetamine-amphetamine [Adderall XR] 30 mg Capsule,Extended Release 24hr 30 mg PO DAILY RF: 0 fluoxetine 20 mg Capsule 60 mg PO DAILY RF: 0 bupropion HCl [Wellbutrin XL] 150 mg Tablet Extended Release 24 Hr 150 mg PO QAM RF: 0 sucralfate 100 mg/mL suspension 10 ml PO BID Qty: 400 RF: 2 Discharge Orders: Discharge Order (Routine); Ordered 12/28/20 Ordered By: Lionel Campa Diet: other Activity on Discharge: No heavy lifting Stand Alone Forms: Patient Portal Discharge page Care Plan Goals: weight loss Health Concerns: morbid obesity Plan of Treatment: No tub baths, sex or returning to work until discussed at first post op appointment. No exercise, alcohol, tobacco or illegal drug use. Continue to use incentive spirometer hourly while awake. Walk in home for 5- 10 minutes every 2 hours during the first week. Continue phase 1 diet today and start phase 2 diet tomorrow morning. Follow all instructions in the bariatric handbook and call with any questions. 1. Please call your doctor or come back to the emergency room should any new symptoms arise. 2. You will receive a courtesy call from [facility] 24-48 hours after discharge. 3. Activity: abstain from alcohol, practice limited stair climbing, no bending, no driving, no exercise, no illicit substances, no lifting, no sex, no tub bath, no work. 4. Diet: continue as discussed with Dr. Campa. 5. Dressing Change/Wound Care: Your incision is covered by surgical glue. If the area is tender, you may apply an ice pack for short intervals (no more than 20 minutes on, followed by at least 20 minutes off). Do not apply heat. Do not use creams, lotions, or topical antibiotics unless instructed to do so by your surgeon. These can cause infection or allergic reaction. 6. Call your doctor if: - Your temperature exceeds 101.5 F - You experience excessive pain or swelling - You have an unexpected reaction to medication - You have excessive bleeding - You experience continued vomiting/nausea - Your incision begins to separate - Your incision shows signs of infection such as increased redness, swelling, excessive pain, heat, or drainage (light blood or clear fluid is normal) 7. General instructions: No lifting greater than 5 lbs for the next 4 weeks[address] driving within 24 hours of taking narcotic pain medications. If you do not move your bowels in the next 2 days, please take milk of magnesia over the counter. Please follow the post op diet and do not advance your diet until you are seen in the office in about 2 weeks. Please walk around your home every hour or two to prevent blood clots from forming in your legs. You do not need to wake from sleeping to walk. Please sleep in a bed or couch to prevent kinking at the hips and knees. Please take your incentive spirometer (your lung data support specialist) home with you and use it for the next few days to prevent pneumonias. You may shower, no hot tubs, baths or swimming pools. Please call the office with any questions or concerns such as increasing abdominal pain, fever, chills, shortness of breath, chest pain, leg pain or swelling, or redness or drainage from your incisions. Please stay on stage 3 diet which includes sugar free clear liquids such as ice pops and jello and broth and crystal light. Avoid all carbonation. Please drink 3 protein shakes with at least 25-30 grams of protein daily or 3 of the Celebrate 4:1 shakes which can be purchased in our office. The Celebrate shakes have all of the bariatric vitamins you need if you consume these shakes. If you are drinking other protein shakes, you will need to purchase the Celebrate multivitamins and calcium that we provide in the office (they will provide all the vitamins you need). Please make sure you are consuming at least 40-60 ounces of water in addition to your 3 protein shakes daily. Do not hesitate to contact the office with any questions at . The patient's medical history has been reviewed and they are considered low risk for post op DVT and therefore DVT prophylaxis is not considered necessary. Travel after surgery was reviewed. The patient has not disclosed any travel plans during the first 30 days after surgery and they have been advised that within the first 30 days after surgery any bus, plane, train or car travel over 2 hours in duration is contraindicated due to the possibility of developing blood clots from immobility. Any travel, needs to include periods of ambulation of 10 minutes in duration every 2 hours. The patient was instructed to discuss any plans for travel during this period with their bariatric surgeon. Assessment: stable post op sleeve gastrectomy
[2020-12-27 17:24] LABS: Hematocrit 41.2 % (37-47); Hemoglobin 13.3 g/dl (12.0-16.0)
[2020-12-27 18:01] LABS: Anion Gap 15 (12-20); Blood Urea Nitrogen 13 mg/dL (9-16); Calcium 8.9 mg/dL (8.4-10.2); Carbon Dioxide 23 mmol/L (22-29); Chloride 104 mmol/L (96-108); Creatinine Clr Calc Pharmacy 114.8; Estimated Glomerular Filt Rate > 60; Glucose Random 155 mg/dL (60-115); Potassium 4.1 mmol/L (3.3-5.1); Sodium 138 mmol/L (135-145)
--- NOTE | 2020-12-27 18:34 | PC.NURSE ---
ISAIAH AVINA BARIATRIC, UPDATED PATIENT SBP RUNNING 170'S INTRAOP AND POSTOPERATIVELY, NSR 80'S. PATIENT JUST VOIDED 200 ML URINE AND MOST RECENT SBP 163/99. NO PAIN NO NAUSEA. PA RESPONDED GREAT THANK YOU
[2020-12-27] MEDS: Lactated Ringers 1,000 ML 125 ML IVCONT (18:59)
--- NOTE | 2020-12-27 19:27 | PC.NURSE ---
P patiet feels hot and cold ,sweating a lot I hSukri Mccullough notified e patient afebrile ,temp 97.0
[2020-12-27] MEDS: ondansetron HCL 4 MG/2 ML VIAL IVPUSH (19:42)
[2020-12-27] MEDS: ceFAZolin Sodium/Dextrose,Iso 2 GM/50 ML PIGGYBACK IV (19:43)
[2020-12-27] MEDS: Famotidine/PF 20 MG/2 ML VIAL IVPUSH (21:02)
[2020-12-28] MEDS: ondansetron HCL 4 MG/2 ML VIAL IVPUSH (02:09)
[2020-12-28] MEDS: Lactated Ringers 1,000 ML 125 ML IVCONT ×2 (02:17→08:09)
[2020-12-28 03:28] VITALS: BP 176/98; PULSE 82; RESP 17; TEMP 37.1; O2SAT 93
[2020-12-28 05:46] LABS: MANUAL DIFF FLAG NO
[2020-12-28 05:50] LABS: Basophils Percent Auto 0.1 % (0-2); Hematocrit 39.1 % (37-47); Hemoglobin 12.6 g/dl (12.0-16.0); Imm Gran Abs Auto 0.05 X10*3/uL (0.00-0.03); Imm Gran Pct Auto 0.5 % (0.0-0.4); Lymphocytes Absolute Auto 1.1 X10*3/uL (1.2-4.9); Mean Corpuscular HGB Conc 32.2 g/dl (31.0-35.0); Mean Corpuscular Hemoglobin 26.6 pg (27.0-33.0); Mean Corpuscular Volume 82.5 fL (80-98); Mean Platelet Volume 11.2 fL (9.4-12.3); Monocytes Absolute Auto 0.5 X10*3/uL (0.1-1.2); Neutrophils Absolute Auto 8.6 X10*3/uL (2.0-8.3); Neutrophils Percent Auto 83.4 % (45-73); Platelet Count 343 X10*3/uL (160-400); Red Blood Count 4.74 X10*6/uL (4.20-5.50); Red Cell Distribution Width 14.2 % (11.0-16.0); White Blood Count 10.3 X10*3/uL (4.8-10.8)
[2020-12-28 06:10] LABS: Anion Gap 13 (12-20); Blood Urea Nitrogen 10 mg/dL (9-16); Calcium 8.8 mg/dL (8.4-10.2); Carbon Dioxide 28 mmol/L (22-29); Chloride 100 mmol/L (96-108); Creatinine Clr Calc Pharmacy 127.6; Estimated Glomerular Filt Rate > 60; Glucose Random 116 mg/dL (60-115); Potassium 4.1 mmol/L (3.3-5.1); Sodium 137 mmol/L (135-145)
[2020-12-28 07:44] VITALS: BP 167/89; PULSE 89; RESP 18; TEMP 37.2; O2SAT 94
[2020-12-28] MEDS: buPROPion HCl XL 150 MG TAB.ER.24H PO (08:07)
[2020-12-28] MEDS: Famotidine/PF 20 MG/2 ML VIAL IVPUSH (08:08)
[2020-12-28] MEDS: FLUoxetine HCl 20 MG CAPSULE 40 MG PO (08:08)
--- NOTE | 2020-12-28 08:59 | MHC.CM.PN ---
CM met with Patient at bedside; home no services is the goal for dc and CM has initiated and will follow for dc planning. 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 PCP is through [facility].
--- NOTE | 2020-12-28 09:43 | HO.POSTANES ---
Post Anesthesia Evaluation Post Anesthesia Evaluation Vital Signs: Vital Signs Temp Pulse Resp BP Pulse Ox 12/28/20 07:44 98.9 F 89 18 167/89 H 94 12/28/20 03:28 98.7 F 82 17 176/98 H 93 12/27/20 23:24 97.7 F 88 17 173/86 H 96 Anesthesia: General Endotracheal-GETA Mental Status: Awake Pain Control: Satisfactory Nausea/Vomiting: None Hydration: Adequate Anesthesia-Related Issues: No Anes. Related Issues
--- NOTE | 2020-12-28 11:18 | MHC.CM.PN ---
Patient has been medically cleared for dc to home today, no services.
== END 2020-12-28 12:04 | disposition home or self-care (01) | DRG 403 ==
LOC: HO.SSSA 11:14 → HO.S3 16:57
PROVIDERS: Physician Assistant; Admitting Provider Surgery; PCP Nurse Practitioner Family; Visit Provider Surgery
PROC: 0DB64Z3 Excision of Stomach, Percutaneous Endoscopic Approach, Vertical (ICD-10-PCS; CPT 43845; principal; 2020-12-27 12:50)
DX: E66.01 Morbid (severe) obesity due to excess calories (principal); K44.0 Diaphragmatic hernia with obstruction, without gangrene; K80.20 Calculus of gallbladder without cholecystitis without obstruction; F32.9 Major depressive disorder, single episode, unspecified; K21.9 Gastro-esophageal reflux disease without esophagitis; M19.90 Unspecified osteoarthritis, unspecified site; F90.9 Attention-deficit hyperactivity disorder, unspecified type; Z68.41 Body mass index [BMI] 40.0-44.9, adult; Z20.822 Contact with and (suspected) exposure to COVID-19; Z87.891 Personal history of nicotine dependence; Z79.899 Other long term (current) drug therapy
CPT/HCPCS: 36415; 80048; 80053; 80061; 83036; 83525; 84443; 84630; 85014; 85018; 85025; 85610; 85730; 86140; 86850; 86900; 86901; 87635; 88307; 88342; 99024; A4649; J0131; J0690; J1100; J1170; J2250; J2405; J3010

== ENCOUNTER → 2021-01-04 10:35 | Outpatient (BNVA) | payer OTHER, SELFPAY | PROVIDERS: Referring Provider Nurse Practitioner Family; Visit Provider Surgery | DX: E66.01 Morbid (severe) obesity due to excess calories (principal); Z68.41 Body mass index [BMI] 40.0-44.9, adult | CPT/HCPCS: 99212 ==

== ENCOUNTER → 2021-02-06 07:55 | Outpatient (BNVA) | payer OTHER, SELFPAY | PROVIDERS: Visit Provider Surgery ==

== ENCOUNTER → 2021-03-01 08:08 | Outpatient (BNVA) | payer OTHER, SELFPAY | PROVIDERS: Visit Provider Physician Assistant Surgical ==

== ENCOUNTER → 2021-04-10 08:02 | Outpatient (BNVA) | payer OTHER, SELFPAY | PROVIDERS: Visit Provider Physician Assistant Surgical ==

== ENCOUNTER → 2021-04-14 08:00 | Outpatient (BNVA) | payer OTHER, SELFPAY | PROVIDERS: Visit Provider Physician Assistant Surgical ==

== ENCOUNTER 2022-12-11 09:49 | Outpatient (REF) | payer MEDICAID, SELFPAY ==
[2022-12-11 11:06] LABS: MANUAL DIFF FLAG NO
[2022-12-11 12:08] LABS: Basophils Absolute Auto 0.1 X10*3/uL (0.0-0.2); Basophils Percent Auto 0.7 % (0-2); Eosinophils Absolute Auto 0.2 X10*3/uL (0.0-0.4); Eosinophils Percent Auto 2.7 % (0-4); Hematocrit 40.8 % (37.0-47.0); Hemoglobin 13.3 g/dl (12.0-16.0); Imm Gran Abs Auto 0.02 X10*3/uL (0.00-0.03); Imm Gran Pct Auto 0.3 % (0.0-0.4); Lymphocytes Percent Auto 28.3 % (20-40); Mean Corpuscular HGB Conc 32.6 g/dl (31.0-35.0); Mean Corpuscular Hemoglobin 29.4 pg (27.0-33.0); Mean Corpuscular Volume 90.3 fL (80.0-98.0); Monocytes Absolute Auto 0.4 X10*3/uL (0.1-1.2); Monocytes Percent Auto 5.7 % (2-11); Neutrophils Absolute Auto 4.4 x10*3/uL (2.0-8.3); Neutrophils Percent Auto 62.3 % (45-73); Platelet Count 333 X10*3/uL (160-400); Red Blood Count 4.52 X10*6/uL (4.20-5.50); Red Cell Distribution Width 13.2 % (11.0-16.0)
[2022-12-11 12:14] LABS: Estimated Average Glucose 100 mg/dL; Hemoglobin A1c % 5.1 % (<6.0)
[2022-12-11 12:49] LABS: Anion Gap 12 (12-20); Blood Urea Nitrogen 24 mg/dL (9-16); C Reactive Protein 0.47 mg/dL (< or = 0.50); Calcium 9.6 mg/dL (8.4-10.2); Carbon Dioxide 29 mmol/L (22-29); Chloride 102 mmol/L (96-108); Cholesterol 162 mg/dL (<200); Estimated Glomerular Filt Rate > 60; Glucose Random 92 mg/dL (60-115); HDL Cholesterol 65 mg/dL (>40); Iron 57 mcg/dL (30-160); LDL Cholesterol Calculated 82 mg/dL (<100); Percent Iron Saturation 17 % (15-50); Potassium 3.8 mmol/L (3.3-5.1); Sodium 139 mmol/L (135-145); Total Iron Binding Capacity 334 mcg/dL (228-428); Triglycerides 79 mg/dL (<150); Unsaturated Iron Binding 277 ug/dL
[2022-12-11 13:10] LABS: Ferritin 38 ng/mL (10-250); TSH reflex Free T4 0.86 uIU/mL (0.32-4.0); Vitamin D 25-OH Total 42.9 ng/mL (>30)
[2022-12-11 13:22] LABS: Folate 15.1 ng/mL (> or = 4.0); Vitamin B12 1240 pg/mL (200-900)
[2022-12-11 13:27] LABS: Insulin 4 uU/mL (2-29)
[2022-12-12 17:58] LABS: Calcium (PTHI) 9.4 mg/dL (8.6-10.4); PTHI 23 pg/mL (16-77)
[2022-12-14 18:28] LABS: Zinc 60 mcg/dL (60-130)
[2022-12-15 21:58] LABS: Vitamin A 65 mcg/dL (38-98)
[2022-12-18 05:54] LABS: Vitamin B1 18 nmol/L (8-30)
== END 2022-12-11 09:50 | disposition home or self-care (01) ==
LOC: HO.LAB 09:49
PROVIDERS: Visit Provider Physician Assistant Surgical
DX: E66.9 Obesity, unspecified (principal); Z71.3 Dietary counseling and surveillance; Z68.33 Body mass index [BMI] 33.0-33.9, adult; Z79.899 Other long term (current) drug therapy; Z98.84 Bariatric surgery status
CPT/HCPCS: 36415; 80048; 80061; 82306; 82607; 82728; 82746; 83036; 83525; 83540; 83970; 84425; 84443; 84590; 84630; 85025; 86140; 99212

== ENCOUNTER 2022-12-11 09:49 | Outpatient (AMB) | payer MEDICAID, SELFPAY ==
--- NOTE | 2022-12-11 09:52 | A.OFFVIS_ITS ---
Intake VS Expanded 12/11/22 10:00 Height 5 ft 7 in Weight 213 lb 12.8 oz BMI 33.5 BP 124/81 Blood Pressure Location Rt brachial Blood Pressure Position Sitting Pulse 100 Pulse Source Pulse Oximeter Temp 96.3 F L Temperature Source Tympanic Pulse Oximetry 97 Oxygen Delivery Method Room Air Body Fat 86.8 Body Fat Percentage 40.7 Free Fat Mass 126.8 Muscle Mass 120.4 Visceral Mass 10.0 Water Mass 90.2 BMR 1,745 Intake Visit Reasons: (OV) PO LSG 12/27/20 Commodity Supervisor Required: No Allergies No Known Allergies Allergy (Verified 12/11/22 09:57) Medication List - Last Reconciled 12/11/22 by ISAIAH Faith bupropion HCl (Wellbutrin XL) 150 mg PO QAM [celebrate mvi PO] dextroamphetamine-amphetamine 30 mg ER (Adderall XR) 30 mg PO DAILY fluoxetine 60 mg PO DAILY HPI HPI Comments History of Present Illness Details This?a?52?yo female who is s/p LSG with hiatal hernia repair on?12/27/[address] Campa. Presents for 2 year post op visit. Weight today is 213.8 pounds with a BMI of 33.5. Last seen in March 2021 with a weight of 250 pounds. Initial weight on 02/10/20 was 314.6 pounds with a BMI of 49.2. Operative weight was 285.3 pounds. She has had a weight loss of 100.8 since starting the program on 02/10/20 or 32 % TBWL, and 71.5 pounds since surgery or 25 % TBWL. No complaints of nausea, emesis, abdominal pain or reflux. She has not been seen in over a year by her own choice. She states her goal is to lose another 30 pounds. Premier protein prior to surgey. Present meal plan includes: granola and yogurt in am chicken and rice or pasta and veg at lunch same as lunch Drinkin oz daily ? Exercise routine includes: walking daily, 30 minutes, [employer] elliptical 20 minutes. Any post op complications: none ASHLEY: never DM: never HTN: never Hyperlipidemia: never GERD:?0-5 scale ??0 = no symptoms ??1 = symptoms noticeable but not bothersome 2 =symptoms bothersome but not daily ? 3 = symptoms bothersome and daily 4 = symptoms affect daily activities 5 = symptoms are incapacitating, unable to do daily activities ? How bad is the heartburn: 0 ? Heartburn while lying down: 0 ? Heartburn when standing up: 0 ? Heartburn after meals: 0 ? Does heartburn change your diet: 0 ? Does heartburn wake you up from sleep: 0 ? Do you have difficulty swallowin ? Do you have pain with swallowin ? If you take medicine for your reflux, does this affect your daily life: 0 Satisfaction with present condition - satisfied or not satisfied: not satisfied [facility] Medical History Cholelithiasis COVID-19 vaccine series completed GERD (gastroesophageal reflux disease) DJD (degenerative joint disease) Depression ADHD Surgical History History of hip replacement Family History Mother No problems noted. Father Congestive heart failure Son Autism Social History Household Members: Spouse and Children Housing: House Are you a primary manager critical care to a significant other at home: No Do you presently have visiting nurse or other home services: No 75 years or older and lives alone: No Patient Tobacco Use Status: Former Tobacco user Quit Date: 20 years ago Tobacco use type: Cigarette Substance Use Type: Marijuana service: No Current occupational status: employed Review of Systems Const All systems reviewed & are unremarkable except as noted in HPI and below Physical Exam Vital Signs: Last Vital Signs Temp 96.3 F L 12/11/22 10:00 Pulse 100 12/11/22 10:00 BP 124/81 12/11/22 10:00 Pulse Ox 97 12/11/22 10:00 Oxygen Delivery Method Room Air 12/11/22 10:00 BMI result Body Mass Index 33.5 Const General: cooperative and no acute distress Orientation/consciousness: patient oriented x3 Resp Effort & Inspection: normal respiratory effort Auscultation: clear to auscultation bilaterally Cardio Rate: regular rate Rhythm: regular rhythm GI Inspection: Yes normal to inspection and Yes incision (well healed) Palpation (GI): Soft to palpation and no masses Neuro General: patient oriented x3 Assessment & Plan Assessment & Plan (1) Obesity (BMI 30-39.9): Code(s): E66.9 - Obesity, unspecified Plan: get 2 year labs change meal plan: 3 premier protein shakes per day with 1 scoop each in 8 oz unsweetened almond milk 7-9 am 11-1 pm 3-5 pm or 8-10 pm Meal at 7 pm with 8 forks protein and 8 forks veg/salad Increase exercise to daily and try to burn 300 calories per day. RTC 6 weeks Orders: Orders Insulin Today E66.9 - Obesity, unspecified, Z98.84 - Bariatric surgery status Complete Blood Count Auto Diff Today E66.9 - Obesity, unspecified, Z98.84 - Bariatric surgery status Vitamin B12 and Folate Today E66.9 - Obesity, unspecified, Z98.84 - Bariatric surgery status Vitamin B1 Today E66.9 - Obesity, unspecified, Z98.84 - Bariatric surgery status Ferritin Today E66.9 - Obesity, unspecified, Z98.84 - Bariatric surgery status Basic Metabolic Panel Today E66.9 - Obesity, unspecified, Z98.84 - Bariatric surgery status Lipid Panel Today E66.9 - Obesity, unspecified, Z98.84 - Bariatric surgery status IRON PROFILE Today E66.9 - Obesity, unspecified, Z98.84 - Bariatric surgery status Zinc Today E66.9 - Obesity, unspecified, Z98.84 - Bariatric surgery status Vitamin A Today E66.9 - Obesity, unspecified, Z98.84 - Bariatric surgery status C Reactive Protein Today E66.9 - Obesity, unspecified, Z98.84 - Bariatric surgery status PTHI Today E66.9 - Obesity, unspecified, Z98.84 - Bariatric surgery status TSH reflex Free T4 Today E66.9 - Obesity, unspecified, Z98.84 - Bariatric surgery status Vitamin D 25-OH Total Today E66.9 - Obesity, unspecified, Z98.84 - Bariatric surgery status Hemoglobin A1c Today E66.9 - Obesity, unspecified, Z98.84 - Bariatric surgery status Coding Level of Care Code Est Pt Level 4 (16429) Diagnoses Obesity (BMI 30-39.9) E66.9
[2022-12-11 10:00] VITALS: BP 124/81; PULSE 100; TEMP 35.7; O2SAT 97; BMI 33.5
== END 2022-12-11 10:30 | disposition home or self-care (01) ==
PROVIDERS: Visit Provider Physician Assistant Surgical
DX: E66.9 Obesity, unspecified (principal)
CPT/HCPCS: 99214